=== PATIENT | female | born 1945 | race Caucasian/White ===

== ENCOUNTER 2016-09-16 12:09 | Emergency (ER) | payer MEDICARE, OTHER ==
[2016-09-16] MEDS ORDERED: Triamcinolone Acetonide 40 MG/ML 1 ML MDV INJECT ONE ×2 (15:01→15:04)
[2016-09-16 17:25] VITALS: BP 132/60
--- NOTE | 2016-09-17 12:27 | ER ---
DATE SEEN: 09/16/2016 TIME SEEN: The patient was seen at 1240 hours. HISTORY OF PRESENT ILLNESS: The patient was recently seen by Dr. Nile Ferrell, chiropractor, with lower back pain and she has felt she had pain starting in her back, consequently saw this chiropractor today. Chiropractor sent her to the hospital for further therapy. She has been advised that she needs to get an MRI and she is sent to the ED to get an MRI. She also has what she describes as bursitis of the right hip. She had a hip x- ray on August 24, 2016, recently and was negative, and told she had arthritis. The patient is currently taking ibuprofen and Tylenol. For the last 2 weeks, she has had right medial calf numbness - (hypoesthesia on the basis of description). She was even walking with a slight limp since 09/13/2016. The patient is a 2, para 2-0-0-2. . She had 2 husbands, . MEDICATIONS: 1. Ibuprofen. 2. Aspirin 81 mg daily. 3. Zocor. 4. Multivitamins. 5. Losartan. 6. Metformin. PAST MEDICAL HISTORY: Significant for diabetes, hypertension, and dyslipidemia. SOCIAL HISTORY: The patient is a nonsmoker. Does not drink alcohol. No other serious illnesses. PAST SURGICAL HISTORY: Cataract extractions with implant. She has type 2 diabetes. Otherwise negative. REVIEW OF SYSTEMS: Negative except as noted above in the HPI. PHYSICAL EXAMINATION: VITAL SIGNS: Blood pressure 159/78, repeat blood pressure several hours later 132/60, heart rate 72 and regular, respirations 16, oxygen saturation 99%, and temperature is 36.5 degrees centigrade. HEENT: PERRLA intact. Pharynx without abnormality. No thyromegaly or masses in neck. No cervical adenopathy. LUNGS: Clear to auscultation without rales, rhonchi, or wheezes. HEART: S1, S2. No murmur. Regular rate and rhythm. ABDOMEN: Soft. No guarding. No abdominal discomfort. No CVA percussion tenderness. MUSCULOSKELETAL: AP pelvic compression is without tenderness. Right hip has mild anterior groin discomfort and posterior discomfort. Moderate right trochanteric pain. External rotation slightly decreased. Internal rotation relatively normal. Straight leg raise is negative. No dysesthesia in lower extremities. There is slight decreased sensation in right medial calf gastroc region. Deep tendon reflexes hypoactive, but present in upper and lower extremities. NEUROLOGIC: Cranial nerves 2 through 12 intact. Gait appropriate. External active dorsiflexion and plantar flexion of right and left lower extremities normal. Palpation of the right trochanteric bursa is markedly tender. Moderate tenderness in the remainder of the trochanter. DIAGNOSIS: RIGHT TROCHANTERIC BURSITIS, HYPERTENSION, DIABETES, DYSLIPIDEMIA EMERGENCY DEPARTMENT COURSE: The patient advised that she has trochanteric bursitis, but would benefit from having 40 mg Kenalog injection with lidocaine. She chose to do this. With sterile prep, the patient's surface was cleansed and then Betadine applied to it, and then alcohol used to remove Betadine and 40 mg Kenalog plus 5 mL 1% lidocaine was injected to the superior right posterior trochanteric facet. The patient has had 75% relief of the pain. The patient no longer limps. She feels much better. The patient is dismissed to follow up with doctor in a week or earlier if worse. Gradually progressively increase her activity as tolerated, and she is given Ceres 16 tablets 1 q.4 hours p.r.n. pain breakthrough from Tylenol 1000 and ibuprofen 600 mg q.6 hours. Use ice packs as needed. /[id number] R[address]N/CIERA [address]YNCH
== END 2016-09-16 16:45 | disposition home or self-care (01) ==
LOC: FB.ED 12:09
DX: M70.61 Trochanteric bursitis, right hip (principal); I10 Essential (primary) hypertension; E11.9 Type 2 diabetes mellitus without complications; E78.5 Hyperlipidemia, unspecified; Z98.49 Cataract extraction status, unspecified eye; Z79.82 Long term (current) use of aspirin
CPT/HCPCS: 20610; 99283; 99284; J3301

== ENCOUNTER 2016-10-17 00:32 | Emergency (ER) | payer MEDICARE, OTHER ==
[2016-10-17 00:49] VITALS: BP 176/83
[2016-10-17] MEDS ORDERED: Ketorolac 30 MG/ML SDV IM ONE (00:53)
[2016-10-17] MEDS ORDERED: Gabapentin 300 MG Cap PO ONE (00:54)
--- NOTE | 2016-10-17 01:00 | EDM.PDOC ---
ED HPI GENERAL MEDICAL PROBLEM - General Chief Complaint: Back Pain or Injury Stated Complaint: BACK PAIN Time Seen by Provider: 10/17/16 00:45 Source of Information: Reports: Patient, Old Records History Limitations: Reports: Other (Not able to access records from 10/16/16 neurology appt) - History of Present Illness INITIAL COMMENTS - FREE TEXT/NARRATIVE: 71 yo female with R sided L5 herniated disc reports a marked increase in her pain since about 4 pm 10/16/16. Saw neurology earlier 10/16 and was offered surgery vs. spinal injection vs. therapy. Since she was doing well at the time she chose to go the conservative route with therapy. Now has much more pain and numbness down the right leg. Took ibuprofen 800 mg at 6 pm without relief. Here with her son. 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 - Related Data Allergies Allergy/AdvReac Type Severity Reaction Status Date / Time No Known Allergies Allergy Verified 10/17/16 00:40 Home Meds: Home Meds Losartan [Cozaar] 100 mg PO DAILY 03/23/13 [History] Simvastatin [Zocor] 10 mg PO BEDTIME 03/23/13 [History] metFORMIN [Glucophage] 500 mg PO BID 03/23/13 [History] Aspirin [Halfprin] 81 mg PO DAILY 08/28/15 [History] Multivitamin with Minerals [Multiple Vitamin] 1 tab PO DAILY 08/28/15 [History] Acetaminophen/HYDROcodone [[place] 325-5 MG] 1 tab PO Q4H PRN #16 tab 09/16/16 [Rx ] Ibuprofen [Advil] 200 mg PO ASDIRECTED PRN 09/16/16 [History] Acetaminophen/oxyCODONE [Percocet 325-7.5 MG] 1 - 2 tab PO Q4H PRN #14 tab 10/17 [Rx] Gabapentin [Neurontin] 300 mg PO TID PRN #16 cap 10/17/16 [Rx] Past Medical History HEENT History: Reports: Impaired Vision Cardiovascular History: Reports: High Cholesterol, Hypertension Respiratory History: Reports: Other (See Below) Other Respiratory History: SINUS DRAINAGE AT TIMES WITH A CHRONIC DRY COUGH. PT IS A SMOKER. 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: Musculoskeletal History: Reports: Arthritis, Back Pain, Chronic Neurological History: Reports: None Endocrine/Metabolic History: Reports: Diabetes, Type II - Past Surgical History HEENT Surgical History: Reports: Cataract Surgery, Tonsillectomy GI Surgical History: Reports: Colonoscopy, Other (See Below) Social & Family History - Tobacco Use Smoking Status *Q: Current Every Day Smoker Years of Tobacco use: 50 Packs/Tins Daily: 1 Used Tobacco, but Quit: No Second Hand Smoke Exposure: Yes - Caffeine Use Caffeine Use: Reports: Coffee - Alcohol Use Days Per Week of Alcohol Use: 0 - Recreational Drug Use Recreational Drug Use: No ED ROS GENERAL - Review of Systems Review Of Systems: See Below Constitutional: Reports: No Symptoms Respiratory: Reports: No Symptoms Cardiovascular: Reports: No Symptoms GI/Abdominal: Reports: No Symptoms : Reports: No Symptoms Musculoskeletal: Reports: Back Pain Skin: Reports: No Symptoms Neurological: Reports: Numbness (down R leg) Psychiatric: Reports: No Symptoms ED EXAM,LOWER BACK PAIN/INJURY - Physical Exam Exam: See Below Exam Limited By: No Limitations General Appearance: Alert, WD/WN, Mild Distress Ears: Hearing Grossly Normal Nose: Normal Inspection, Normal Mucosa, No Blood Throat/Mouth: Normal Inspection, Normal Lips, Normal Voice, No Airway Compromise Head: Atraumatic, Normocephalic Neck: Normal Inspection, Supple Respiratory/Chest: No Respiratory Distress, Lungs Clear, Normal Breath Sounds Cardiovascular: Regular Rate, Rhythm, No Edema GI/Abdominal: Normal Bowel Sounds, Soft, Non-Tender, No Distention Back Exam: Normal Inspection, Vertebral Tenderness (lumbar spine). No: CVA Tenderness (R), CVA Tenderness (L) Extremities: Normal Inspection, Non-Tender, No Pedal Edema Neurological: Alert, Normal Mood/Affect, CN II-XII Intact, No Motor/Sensory Deficits, Oriented x 3 Psychiatric: Normal Affect, Normal Mood Skin Exam: Warm, Dry, Intact, Normal Color, No Rash Lymphatic: No Adenopathy Course - Vital Signs Text/Narrative:: Toradol 30 mg IM, gabapentin 300 mg po, Percocet 1 po Last Recorded V/S: Last Vital Signs Temp 37.1 C 10/17/16 00:42 Pulse 84 10/17/16 00:42 Resp 20 10/17/16 00:42 BP 176/83 H 10/17/16 00:42 Pulse Ox 100 10/17/16 00:42 - Orders/Labs/Meds Meds: Medications Discontinued Medications Generic Name Dose Route Start Last Admin Trade Name Freq PRN Reason Stop Dose Admin Gabapentin 300 mg 10/17/16 00:54 10/17/16 01:03 Neurontin PO 10/17/16 00:55 300 mg ONETIME ONE Administration Ketorolac Tromethamine 30 mg 10/17/16 00:53 10/17/16 01:03 Toradol IM 10/17/16 00:54 30 mg ONETIME ONE Administration Oxycodone/Acetaminophen 1 tab 10/17/16 01:04 10/17/16 01:11 Percocet 325-5 Mg PO 10/17/16 01:05 1 tab ONETIME ONE Administration Departure - Departure Time of Disposition: 01:30 Disposition: Home, Self-Care 01 Condition: Fair Clinical Impression: Lumbar back pain with radiculopathy affecting right lower extremity - Discharge Information Prescriptions: Acetaminophen/oxyCODONE [Percocet 325-7.5 MG] 1 - 2 tab PO Q4H PRN #14 tab PRN Reason: Pain Gabapentin [Neurontin] 300 mg PO TID PRN #16 cap PRN Reason: Pain Referrals: Tone Fairchild MD [Primary Care Provider] - Forms: ED Department Discharge
[2016-10-17] MEDS ORDERED: Acetaminophen/oxyCODONE 325-5 MG Tab PO ONE ×2 (01:04→01:10)
== END 2016-10-17 01:18 | disposition home or self-care (01) ==
LOC: FB.ED 00:32
DX: M54.16 Radiculopathy, lumbar region (principal); I10 Essential (primary) hypertension; E78.00 Pure hypercholesterolemia, unspecified; M19.90 Unspecified osteoarthritis, unspecified site; E11.9 Type 2 diabetes mellitus without complications; F17.210 Nicotine dependence, cigarettes, uncomplicated; Z98.49 Cataract extraction status, unspecified eye; Z98.890 Other specified postprocedural states; Z79.82 Long term (current) use of aspirin; Z79.899 Other long term (current) drug therapy; Z79.84 Long term (current) use of oral hypoglycemic drugs
CPT/HCPCS: 96372; 99283; A9270; J1885

== ENCOUNTER 2016-10-21 14:52 | Emergency (ER) | payer MEDICARE, OTHER ==
[2016-10-21] MEDS ORDERED: Gabapentin 300 MG Cap PO ONE (15:10)
[2016-10-21] MEDS ORDERED: Ketorolac 30 MG/ML SDV IM ONE (15:10)
[2016-10-21] MEDS ORDERED: Acetaminophen/oxyCODONE 325-5 MG Tab PO ONE ×2 (15:11→16:24)
--- NOTE | 2016-10-21 15:17 | EDM.PDOC ---
ED HPI GENERAL MEDICAL PROBLEM - General Chief Complaint: Back Pain or Injury Stated Complaint: BACK PAIN Time Seen by Provider: 10/21/16 15:05 Source of Information: Reports: Patient, Family, Old Records History Limitations: Reports: No Limitations - History of Present Illness INITIAL COMMENTS - FREE TEXT/NARRATIVE: 71 yo female here with low back pain. Was seen here last night for the same pain and was given a limited supply of pain meds with the understaning that she would follow up with Dr. Fairchild or her pain doctor. She tried to get in to see the pain doctor, Dr. Stone, unsuccessfully. Did not try to get in to see Dr. Fairchild. Pain is now back as she is out of her meds and last dose was early this morning. Low back pain that radiates down her R leg. Sedation is the only SE from her gabapentin and oxycodone. Onset: Unknown/Unsure Duration: Week(s):, Waxing/Waning Location: Reports: Back Quality: Reports: Ache Severity: Moderate Improves with: Reports: Medication, Rest Worsens with: Reports: Movement Context: Reports: Other (L5 herniation on R side seen on MRI) Associated Symptoms: Reports: Other (Pain radiating down the R leg with mild R foot drop) Treatments CUSTOMS AGENT: Reports: Other (see below) (Meds all worn off before arrival in the ER today.) lower back & Rt hip Pain Score (Numeric/FACES): 10 - Related Data Allergies Allergy/AdvReac Type Severity Reaction Status Date / Time No Known Allergies Allergy Verified 10/21/16 15:03 Home Meds: Home Meds Losartan [Cozaar] 100 mg PO DAILY 03/23/13 [History] Simvastatin [Zocor] 10 mg PO BEDTIME 03/23/13 [History] metFORMIN [Glucophage] 500 mg PO BID 03/23/13 [History] Aspirin [Halfprin] 81 mg PO DAILY 08/28/15 [History] Multivitamin with Minerals [Multiple Vitamin] 1 tab PO DAILY 08/28/15 [History] Acetaminophen/oxyCODONE [Percocet 325-7.5 MG] 1 - 2 tab PO Q4H PRN #14 tab 10/17 [Rx] Acetaminophen/oxyCODONE [Percocet 325-5 MG] 1 - 2 tab PO Q4HR PRN #20 tab [Rx] Gabapentin [Neurontin] 300 mg PO TID #20 cap 10/21/16 [Rx] Past Medical History HEENT History: Reports: Impaired Vision Cardiovascular History: Reports: High Cholesterol, Hypertension Respiratory History: Reports: Other (See Below) Other Respiratory History: SINUS DRAINAGE AT TIMES WITH A CHRONIC DRY COUGH. PT IS A SMOKER. 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: Musculoskeletal History: Reports: Arthritis, Back Pain, Chronic Neurological History: Reports: None Endocrine/Metabolic History: Reports: Diabetes, Type II - Past Surgical History HEENT Surgical History: Reports: Cataract Surgery, Tonsillectomy GI Surgical History: Reports: Colonoscopy, Other (See Below) Social & Family History - Tobacco Use Smoking Status *Q: Current Every Day Smoker Years of Tobacco use: 50 Packs/Tins Daily: 1 Used Tobacco, but Quit: No Second Hand Smoke Exposure: Yes - Caffeine Use Caffeine Use: Reports: Coffee - Alcohol Use Days Per Week of Alcohol Use: 0 - Recreational Drug Use Recreational Drug Use: No ED ROS GENERAL - Review of Systems Review Of Systems: See Below Constitutional: Reports: No Symptoms Respiratory: Reports: No Symptoms Cardiovascular: Reports: No Symptoms GI/Abdominal: Reports: No Symptoms : Reports: No Symptoms Musculoskeletal: Reports: Back Pain (low) Skin: Reports: No Symptoms Neurological: Reports: Other (Pain radiating down the R leg. No bowel or bladder dysfunction. ) Psychiatric: Reports: No Symptoms ED EXAM,LOWER BACK PAIN/INJURY - Physical Exam Exam: See Below Exam Limited By: No Limitations General Appearance: Alert, WD/WN, No Apparent Distress Eye Exam: Bilateral Eye: Normal Inspection Ears: Normal External Exam, Normal Canal, Hearing Grossly Normal Nose: Normal Inspection, Normal Mucosa, No Blood Throat/Mouth: Normal Inspection, Normal Lips, Normal Oropharynx, Normal Voice, No Airway Compromise Head: Atraumatic, Normocephalic Neck: Normal Inspection, Supple, Non-Tender Respiratory/Chest: No Respiratory Distress, Lungs Clear, Normal Breath Sounds, No Accessory Muscle Use Cardiovascular: Regular Rate, Rhythm, No Edema Back Exam: Normal Inspection. No: CVA Tenderness (R), CVA Tenderness (L) Extremities: Normal Inspection, Normal Range of Motion, Non-Tender Neurological: Alert, Normal Mood/Affect, CN II-XII Intact, No Motor/Sensory Deficits, Oriented x 3, Other (Strength to dorsiflexion of R foot is 4/5 and 5/ 5 on left. ) Psychiatric: Normal Affect, Normal Mood Skin Exam: Warm, Dry, Intact, Normal Color, No Rash Lymphatic: No Adenopathy Course - Vital Signs Text/Narrative:: Toradol 30 mg IM, Percocet 1 po, gabapentin 300 mg po Later, an additional Percocet was given po due to inadequate pain relief. Last Recorded V/S: Last Vital Signs Temp 36.4 C 10/21/16 14:52 Pulse 74 10/21/16 14:52 Resp 18 10/21/16 14:52 BP 194/86 H 10/21/16 14:52 Pulse Ox 100 10/21/16 14:52 - Orders/Labs/Meds Meds: Medications Discontinued Medications Generic Name Dose Route Start Last Admin Trade Name Freq PRN Reason Stop Dose Admin Gabapentin 300 mg 10/21/16 15:10 10/21/16 15:18 Neurontin PO 10/21/16 15:11 300 mg ONETIME ONE Administration Ketorolac Tromethamine 30 mg 10/21/16 15:10 10/21/16 15:19 Toradol IM 10/21/16 15:11 30 mg ONETIME ONE Administration Oxycodone/Acetaminophen 1 tab 10/21/16 15:11 10/21/16 15:18 Percocet 325-5 Mg PO 10/21/16 15:12 1 tab ONETIME ONE Administration Oxycodone/Acetaminophen 1 tab 10/21/16 16:24 10/21/16 16:29 Percocet 325-5 Mg PO 10/21/16 16:25 1 tab ONETIME ONE Administration Departure - Departure Time of Disposition: 17:35 Disposition: Home, Self-Care 01 Condition: Fair Clinical Impression: Acute exacerbation of chronic low back pain, Lumbar disc herniation with radiculopathy - Discharge Information Prescriptions: Acetaminophen/oxyCODONE [Percocet 325-5 MG] 1 - 2 tab PO Q4HR PRN #20 tab PRN Reason: Pain Gabapentin [Neurontin] 300 mg PO TID #20 cap Referrals: Tone Fairchild MD [Primary Care Provider] - Forms: ED Department Discharge Care Plan Goals: Take ibuprofen 400 mg every 6 hrs with food. Take gabapentin every 8 hrs. Add Percocet or acetaminophen as needed for added relief. F/U with Dr. Fairchild this week, call for an appt. No driving. See your pain doctor regarding an epidural back injection.
[2016-10-21 17:37] VITALS: BP 183/74
== END 2016-10-21 17:35 | disposition home or self-care (01) ==
LOC: FB.ED 14:52
DX: M51.16 Intervertebral disc disorders with radiculopathy, lumbar region (principal); I10 Essential (primary) hypertension; E78.00 Pure hypercholesterolemia, unspecified; M19.90 Unspecified osteoarthritis, unspecified site; E11.9 Type 2 diabetes mellitus without complications; F17.210 Nicotine dependence, cigarettes, uncomplicated; Z98.49 Cataract extraction status, unspecified eye; Z79.899 Other long term (current) drug therapy; Z79.82 Long term (current) use of aspirin
CPT/HCPCS: 96372; 99283; A9270; J1885; 99284